=== PATIENT | female | born 1970 | race Caucasian/White ===

== ENCOUNTER 2024-07-17 07:17 | Day surgery (SDC) | payer OTHER, SELFPAY ==
[2024-07-17 07:44] VITALS: BMI 29.5
[2024-07-17 08:02] VITALS: BP 127/76; PULSE 95; RESP 16; TEMP 37.1; O2SAT 95
[2024-07-17] MEDS: SODIUM CHLORIDE 0.9 % (FLUSH) 10 ML SYRINGE IVF (08:10)
--- NOTE | 2024-07-17 08:45 | CRLHL7_ITS ---
For Patients: As a result of the Cures Act, medical imaging exams and procedure reports are released immediately into your electronic medical record. You may view this report before your referring provider. If you have questions, please contact your health care provider. Indication: INTRA OP RT FOOT Technique: Two fluoroscopic images of the right foot. Fluoroscopic time 14.44 seconds. IMPRESSION: Fluoroscopic guidance for 1st MTP fusion. Dictated by Brown De Jesus MD @ 07/17/2024 12:31:56 PM (Electronically Signed)
[2024-07-17] MEDS: BUPIVACAINE 0.25% 30 ML INJECTION (09:35)
[2024-07-17] MEDS: CEFAZOLIN 2 GM INJ IVP (09:38)
--- NOTE | 2024-07-17 09:42 | W.ANESCHARGE ---
Anesthesia Charges Start Date/Time Anesthesia Start Date: 07/17/24 Anesthesia Start Time: 09:27 Stop Date/Time Anesthesia Stop Date: 07/17/24 Anesthesia Stop Time: 10:52
[2024-07-17 10:40] VITALS: BP 95/64; PULSE 71; RESP 16; TEMP 36.3; O2SAT 93
--- NOTE | 2024-07-17 10:56 | W.ANESCHARGE ---
Anesthesia Charges Start Date/Time Anesthesia Start Date: 07/17/24 Anesthesia Start Time: 09:27 Stop Date/Time Anesthesia Stop Date: 07/17/24 Anesthesia Stop Time: 10:52
--- NOTE | 2024-07-17 10:58 | W.PODPROC_ITS ---
Date of Procedure: 07/17/24 Surgeon: Carlos Jordan DPM Pre-op Diagnosis: Hallux rigidus right foot Post-op Diagnosis: Hallux rigidus right foot Type of Procedure: 1st MPJ fusion right foot Indications: Patient has elected to proceed with surgical correction of a arthritic 1st MPJ right foot. I reviewed the procedure, recovery, expectation potential complications. These include but are not limited to: Poor wound healing, infection, under correction, over correction, malunion, delayed union, nonunion, nerve injury, hardware irritation, potential need for future surgery, complex regional pain syndrome, deep venous thrombosis, pulmonary embolism and possible . She understands risks written consent was obtained. Site marked. Procedure Description: Patient brought the operating room placed supine position on operating table. IV sedation was initiated and 30 mL of 0.25% Marcaine plain local anesthetic was injected into the right foot. She was prepped and draped in sterile fashion. Standard time-out protocol followed. Right limb was exsanguinated the tourniquet inflated. Linear incisions made over the 1st metatarsal phalangeal joint dorsally. The incision was carried down through skin subcutaneous tissues. Capsular and periosteal incision was made. These tissues reflected away from the base of the proximal phalanx and the head of 1st metatarsal. Combination of a sagittal saw and a rongeur was used to remove the bony spurring dorsal, medial and lateral aspect of the 1st metatarsal head. There is 50% cartilage loss of the proximal phalanx lateral aspect and large osteochondral defect central lateral foot 1st metatarsal head. Guide pin was placed in the 1st metatarsal head and a 18 mm Reamer was used to remove the remaining cartilage and subchondral bone. Guide pins removed and placed in the base of the proximal phalanx. Corresponding 18 mm Reamer was used to remove the remaining cartilage and subchondral bone. Area was thoroughly irrigated normal sterile saline. Opposing fusion surfaces were fenestrated with the guide pin. Simulated weight-bearing was performed and the 1st MPJ appropriately positioned and temporarily fixated with a K-wire. C-arm confirmed position. A 3.0 partially-threaded headless screw was then inserted using standard technique from distal medial to proximal lateral across the fusion site. Excellent compression of the fusion site noted. Dorsal aspect of the metatarsal head was remodeled with a rotary bur and a 6 hole plate applied dorsally. Three 3.0 mm locking screws were placed distal and 2 were placed proximal. Additional 3.0 mm nonlocking screw was placed proximal through the plate. 1st metatarsal head was then remodeled with a rotary bur. Wound was thoroughly irrigated normal sterile saline. Final C-arm images showed excellent position. Vicryl was reapproximated with 3-0 Vicryl, subcutaneous tissues reapproximated 4-0 Monocryl and skin closed with 4-0 Prolene. Sterile dressing was applied. Tourniquet released. Normal capillary fill time returned all digits. She was placed in a well-padded cam boot. She was transferred from OR to same-day with vital signs stable vascular status intact. She was given both written and verbal postop instructions. She will be discharged per same-day surgery protocol. She was given oxycodone for pain. She will follow-up in 2 days. Anesthesia: MAC and local Hemostasis: ankle Estimated blood loss (mL): 2 Implants: Arthrex 1st MPJ fusion plate x1, Arthrex 3.0 mm cortical locking screw x5, 3.0 m m cortical nonlocking screw x1, 3.0 mm cannulated headless screw x1. Specimens: none sent Disposition: same day
[2024-07-17 11:00] VITALS: BP 108/72; PULSE 67; RESP 16; O2SAT 94
[2024-07-17 11:15] VITALS: BP 110/65; PULSE 64; RESP 16; O2SAT 95
[2024-07-17 11:30] VITALS: BP 111/66; PULSE 65; RESP 16; O2SAT 95
== END 2024-07-17 12:00 | disposition home or self-care (01) ==
LOC: OR 07:20
PROVIDERS: PCP Family Medicine; Visit Provider Podiatrist
PROC: (CPT 28740; principal; 2024-07-17 08:45)
DX: M20.21 Hallux rigidus, right foot (principal)
CPT/HCPCS: 28750; 01480; 73620; 76000; 97116; 97161; A4580; C1713; J0665; J0690; J1100; J2405; J2704; J3010